=== PATIENT | male | born 1990 | race Caucasian/White ===

== ENCOUNTER 2023-07-18 17:09 | Emergency (ER) | payer SELFPAY ==
[~2023-07-18 17:09] MED LIST: Iopamidol 370 76% 100 ML VIAL ONE
[2023-07-18 18:40] LABS: #Basophils 0.1 10x3/uL (0.0-0.2); #Monocytes 0.4 10x3/uL (0.0-1.1); #Neutrophils 4.9 10x3/uL (1.5-8.4); %Basophils 0.6 % (0.0-2.0); %Eosinophils 0.5 % (0.0-6.0); %Lymphocytes 35.7 % (18.0-47.0); %Monocytes 4.9 % (0.0-10.0); %Neutrophils 57.9 % (40.0-75.0); Hematocrit 48.2 % (38.8-50.0); Hemoglobin 16.5 g/dL (13.5-17.5); Mean Corpuscular HGB CONC 34.2 g/dL (32.0-36.0); Mean Corpuscular Hemoglobin 28.6 pg (27.0-33.0); Mean Corpuscular Volume 83.5 fl (81.2-95.1); Mean Platelet Volume 9.1 fl (7.4-10.4); Platelet Count 311 10x3/uL (150-450); RBC Distribution Width 15.2 % (11.5-14.5); Red Blood Cell (RBC) Count 5.77 10x6/uL (4.32-5.72); White Blood Cell (WBC) Count 8.4 10x3/uL (3.5-10.5)
[2023-07-18 18:46] LABS: ALT (SGPT) 50 U/L (8-55); AST (SGOT) 55 U/L (5-34); Acetaminophen Less than 10 mcg/mL (10.0-30.0); Albumin 4.4 g/dL (3.5-5.0); Alcohol 251.4 mg/dL (Less than 10); Alkaline Phosphatase 59 U/L (40-110); Anion Gap 19 mmol/L (10-20); BUN (Urea Nitrogen) 9 mg/dL (8.9-20.6); Bilirubin, Total 0.5 mg/dL (0.2-1.2); Calc. Creatinine Clearance 0 mL/min (70-130); Calcium 8.6 mg/dL (7.8-10.44); Carbon Dioxide 20 mmol/L (22-29); Chloride 104 mmol/L (98-107); Estimated GFR 88; Globulin 3.7 g/dL (2.4-3.5); Glucose 115 mg/dL (70-105); Potassium 3.6 mmol/L (3.5-5.1); Protein, Total 8.1 g/dL (6.0-8.3); Salicylate Less than 8.0 mg/dL (15.0-30.0); Sodium 139 mmol/L (136-145)
[2023-07-18 19:03] LABS: Amphetamine Not Detected (NotDetected); Barbiturates Screen Not Detected (NotDetected); Benzodiazepine Screen Not Detected (NotDetected); Cocaine Metabolite Screen Not Detected (NotDetected); Methadone Not Detected (NotDetected); Methamphetamine Not Detected (NotDetected); Opiate Screen Not Detected (NotDetected); Oxycodone Screen Not Detected (NotDetected); Phencyclidine (PCP) Not Detected (NotDetected); THC/Cannabinoid Screen Not Detected (NotDetected); Tricyclic Screen Not Detected (NotDetected)
[2023-07-18 20:33] LABS: Troponin I Less than 0.010 ng/mL (< 0.028)
[2023-07-18] MEDS ORDERED: hydrOXYzine 25 MG TAB ONE (20:40)
== END 2023-07-19 02:05 | disposition home or self-care (01) ==
LOC: CSHERS 17:09
DX: F10.129 Alcohol abuse with intoxication, unspecified (principal); R00.0 Tachycardia, unspecified
CPT/HCPCS: 36415; 71275; 80053; 80306; 80307; 83880; 84443; 84484; 85025; 93005; 96360; 96361; Q9967